=== PATIENT | female | born 1975 | race African-American/Black ===

== ENCOUNTER 2020-12-18 07:28 | Emergency (ER) | payer OTHER ==
[~2020-12-18] VITALS: Ht 172.7 cm; Wt 119.5 kg
[2020-12-18] MEDS ORDERED: KETOROLAC TROMETHAMINE 60 MG/2 ML VIAL IM ONE (08:00)
[2020-12-18] MEDS ORDERED: KETOROLAC TROMETHAMINE 30 MG/ML VIAL ONE (08:05)
[2020-12-18] MEDS ORDERED: NAPROSYN500 MG PO (08:26)
[2020-12-18] MEDS ORDERED: CYCLOBENZAPRINE5 MG PO (08:26)
== END 2020-12-18 08:56 | disposition home or self-care (01) ==
LOC: FSED 08:12
DX: S33.5XXA Sprain of ligaments of lumbar spine, initial encounter (principal); S50.02XA Contusion of left elbow, initial encounter; V43.52XA Car driver injured in collision with other type car in traffic accident, initial encounter; Y92.488 Other paved roadways as the place of occurrence of the external cause
CPT/HCPCS: 72100; 73080; 96372; 99283; J1885